=== PATIENT | female | born 1940 | race Caucasian/White ===

== ENCOUNTER 2018-07-26 07:26 | Day surgery (SDC) | payer MEDICARE, BC ==
[2018-07-26] MEDS ORDERED: PROPOFOL 500 MG/50 ML EMU IV ONE (07:41)
[2018-07-26] MEDS ORDERED: LIDOCAINE HCL 1% MPF 30 SOL ONE (07:42)
[2018-07-26 09:14] VITALS: PULSE 67; RESP 16; TEMP 97.9; O2SAT 96
[2018-07-26 09:21] VITALS: BP 158/96
== END 2018-07-26 09:34 | disposition home or self-care (01) | DRG 951 ==
LOC: SURG 07:26
PROVIDERS: ATTEND Surgery
DX: Z12.11 Encounter for screening for malignant neoplasm of colon (principal); K57.32 Diverticulitis of large intestine without perforation or abscess without bleeding; Z80.0 Family history of malignant neoplasm of digestive organs; Z86.010 Personal history of colon polyps; K63.89 Other specified diseases of intestine; D12.2 Benign neoplasm of ascending colon
CPT/HCPCS: J2001; J2704

== ENCOUNTER 2018-12-05 13:16 | Outpatient (CLI) | payer MEDICARE, BC ==
[2018-07-26 09:14] VITALS: O2SAT 96
== END 2018-12-05 13:17 | disposition home or self-care (01) | DRG 310 ==
LOC: CONVCARE 13:16
PROVIDERS: ATTEND Internal Medicine Cardiovascular Disease
DX: I48.92 Unspecified atrial flutter (principal)
CPT/HCPCS: 93005; 93306